=== PATIENT | female | born 1960 | race Caucasian/White ===

== ENCOUNTER 2019-07-14 09:45 | Emergency (ER) | payer BC, MEDICAID ==
--- OUTSIDE RECORDS SUMMARY | 2019-07-14 10:15 | XMS REPORT | Continuity of Care Document ---
:1960 External Reference #:[id number] Author Name Delio Sorto DO Address [address] [place] [id number] Problems Active Problems Provider Date Vitamin D deficiency Delio Sorto DO Onset: 09/25/2011 Pure hypercholesterolemia Delio Sorto DO Onset: 09/25/2011 Obesity Leonila Ramirez MD Onset: 01/01/2006 Tobacco user Leonila Ramirez MD Onset: 01/01/2006 Mixed hyperlipidemia Leonila Ramirez MD Onset: 01/01/2006 Benign essential hypertension Leonila Ramirez MD Onset: 01/01/2006 Depressive disorder Delio Sorto DO Onset: 10/07/2014 Social History Type Date Description Comments Sex Unknown Tobacco Use Start: Unknown current cigarette smoker 3/4 pack a day ETOH Use Occasionally consumes alcohol Tobacco Use Start: Unknown Light tobacco smoker (10 or fewer cigarettes/day) Smoking Status Reviewed: 07/07/19 Light tobacco smoker (10 or fewer cigarettes/day) Allergies, Adverse Reactions, Alerts Active Allergies Reaction Severity Comments Date Sulfa Drugs 10/12/2014 Medications Active Medications SIG Qnty Indications Ordering Provider Date Vitamin D3 1 by mouth every Unknown 250mcg (55196 day Ut) Capsules Zinc 1 by mouth every Unknown 50mg Tablets day Immunizations CPT Code Status Date Vaccine Lot # [id number] Given 01/01/2006 Tdap (Adacel) Ages 7 And Above Only Vital Signs Date Vital Result Comment 07/07/2019 2:32pm Weight 149.00 lb Heart Rate 82 /min BP Systolic 168 mmHg BP Diastolic 90 mmHg BP Systolic Recheck 138 mmHg BP Diastolic Recheck 84 mmHg Respiratory Rate 17 /min Height 64 inches 5'4" BMI (Body Mass Index) 25.6 kg/m2 03/16/2015 1:39pm Weight 151.00 lb Heart Rate 88 /min BP Systolic 130 mmHg BP Diastolic 78 mmHg Respiratory Rate 17 /min Height 64 inches 5'4" BMI (Body Mass Index) 25.9 kg/m2 Results Description No Information Available Procedures Date Code Description Status 03/28/2006 79441133 Mammogram Completed 05/02/2001 281906361 Bone Mineral Density Test Completed Medical Devices Description No Information Available Encounters Description No Information Available Assessments Date Code Description Provider 07/07/2019 Z00.00 Encounter for general adult medical examination Delio Sorto DO without abnormal findings 07/07/2019 R03.0 Elevated blood-pressure reading, without Delio Sorto DO diagnosis of hypertension 07/07/2019 E78.2 Mixed hyperlipidemia Delio Sorto DO 07/07/2019 F17.210 Nicotine dependence, cigarettes, uncomplicated Delio Sorto DO 07/07/2019 E55.9 Vitamin D deficiency, unspecified Delio Sorto DO 07/07/2019 Z12.31 Encounter for screening mammogram for malignant Delio Sorto DO neoplasm of breast 07/07/2019 Z78.0 Asymptomatic menopausal state Delio Sorto DO 07/07/2019 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 Delio Sorto DO 07/07/2019 Z68.25 Body mass index (BMI) 25.0-25.9, adult Delio Sorto DO Plan of Treatment Future Appointment(s):07/09/2019 7:35 am - Schedule, Laboratory at [facility]2019 11:15 am - Delio Sorto DO at [facility]07/07/2019 - Delio Sorto DOZ00.00 Encounter for general adult medical examination without abnormal vkpqjafbV14.0 Elevated blood-pressure reading, without diagnosis of izihoeudkoioD62.2 Mixed hyperlipidemiaNew Labs:CBC with Auto Diff-fcmg, Scheduled: Comprehensive Met Panel-FCMG, Scheduled: 07/09/20Lipid, Scheduled: 07/09/20TSH , Scheduled: 07/09/20F17.210 Nicotine dependence, cigarettes, xckekqgzrbqgmM91.9 Vitamin D deficiency, unspecifiedNew Labs:Vit D 25Oh, Scheduled: 07/09/20Z12.31 Encounter for screening mammogram for malignant neoplasm of breastNew Xrays:Mammogram Screening, Bilateral Incl CAD When Performe, Scheduled: 07/21/19Z78.0 Asymptomatic menopausal stateNew Xrays:Bone Density Study (Dexa), Scheduled: 07/21/19D37.02 Neoplasm of uncertain behavior of ghmwuzX58.25 Body mass index (BMI) 25.0-25.9, adultAllReferral:Horacio Watson MD , OtolaryngologyFollow up:Follow up in one year for annual physical examination. 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 [place] 07/[address] [place] [phone]
[2019-07-14 10:27] VITALS: BP 142/83
--- NOTE | 2019-07-14 10:55 | ED ---
Neurological HPI - HPI Summary HPI Summary: 59 yr old female with the complaint of feeling dizzy, off balance, hands not working right, and feeling like she is just not right this morning. Onset this morning. She spilled her coffee due to feeling un coordinated. She has no focal weakness. Her hands did feel numb this morning. Her symptoms got better but came back and she drove herself to urgent care. She has no headache. No photophobia. No neck stiffness. - History of Current Complaint Chief Complaint: UCGeneralIllness Stated Complaint: DIZZINESS Time Seen by Provider: 07/14/19 10:30 Hx Last Menstrual Period: 2 yrs Pain Intensity: 0 Pain Scale Used: 0-10 Numeric - Allergy/Home Medications Allergies/Adverse Reactions: Allergies Allergy/AdvReac Type Severity Reaction Status Date / Time Sulfa (Sulfonamide Allergy Unknown Verified 07/14/19 10:20 Antibiotics) Reaction Details Home Medications: Home Medications Cholecalciferol TAB* [Vitamin D TAB*] 1,000 unit PO DAILY 07/14/19 [History Confirmed 07/14/19] Zinc Amino Acid Chelate [Zinc Chelated] 50 mg PO DAILY 07/14/19 [History Confirmed 07/14/19] PMH/Surg Hx/FS Hx/Imm Hx - Surgical History Surgery Procedure, Year, and Place: Tubal Ligation, Bilateral Bunionectomies Infectious Disease History: No Infectious Disease History: Denies: Traveled Outside the [place] in Last 30 Days - Family History Known Family History: Positive: None - Social History Alcohol Use: None Substance Use Type: Reports: None Smoking Status (MU): Heavy Every Day Tobacco Smoker Type: Cigarettes Amount Used/How Often: ~1/2 PPD Length of Time of Smoking/Using Tobacco: Since Age 17 (quit for 3 years) Review of Systems Constitutional: Negative Neurological: Other - dizzy, discoordinated, numb in hands. Negative: Headache All Other Systems Reviewed And Are Negative: Yes Physical Exam Triage Information Reviewed: Yes Vital Signs On Initial Exam: Initial Vitals Temp Pulse Resp BP Pulse Ox 98.4 F 81 16 142/83 98 07/14/19 10:15 07/14/19 10:15 07/14/19 10:15 07/14/19 10:15 07/14/19 10:15 Vital Signs Reviewed: Yes Appearance: Positive: Well-Appearing, No Pain Distress Skin: Positive: Warm, Skin Color Reflects Adequate Perfusion Head/Face: Positive: Normal Head/Face Inspection Eyes: Positive: EOMI, SORIN ENT: Positive: Normal ENT inspection Neck: Positive: Nontender Respiratory/Lung Sounds: Positive: Clear to Auscultation, Breath Sounds Present Cardiovascular: Positive: RRR. Negative: Murmur Abdomen Description: Negative: Distended Musculoskeletal: Positive: Strength/ROM Intact Neurological: Positive: Sensory/Motor Intact, Alert, Oriented to Person Place, Time, CN Intact II-III, Normal Gait, Speech Normal Psychiatric: Positive: Normal Diagnostics - Vital Signs Vital Signs Temp Pulse Resp BP Pulse Ox 07/14/19 10:15 98.4 F 81 16 142/83 98 - Laboratory Lab Statement: Any lab studies that have been ordered have been reviewed, and results considered in the medical decision making process. Course/Dx - Course Course Of Treatment: 59 yr old with possible stroke symptoms, TIA symptoms. NOn focal exam now. Recommend to the ER for further work up of her symptoms by ambulance. Recommended she go to a stroke center. She signed out AMA and states she just wants to go to [place] [facility] from here. - Diagnoses Provider Diagnoses: Discoordination, Dizzy Discharge ED - Sign-Out/Discharge Documenting (check all that apply): Patient Departure All imaging exams completed and their final reports reviewed: No Studies - Discharge Plan Condition: Good Disposition: AGAINST MEDICAL ADVICE Referrals: Delio Sorto DO [Primary Care Provider] - - Billing Disposition and Condition Condition: GOOD Disposition: Against Medical Advice
== END 2019-07-14 10:43 | disposition left against medical advice (07) ==
LOC: UCCORT 09:45
DX: R42 Dizziness and giddiness (principal); R27.8 Other lack of coordination; F17.210 Nicotine dependence, cigarettes, uncomplicated; Z88.2 Allergy status to sulfonamides
CPT/HCPCS: 99202; G0463